=== PATIENT | female | born 1985 | race Caucasian/White ===

== ENCOUNTER → 2017-06-28 | Outpatient (CLI) | payer OTHER ==
--- NOTE | 2017-06-29 15:03 | RAD ---
EXAM: Frontal and lateral chest X-ray's obtained. CLINICAL INDICATION: APTYPICAL CHEST PAIN COMPARISON: Chest x-ray radiograph from 05/28/2012, but report unavailable at the time of dictation FINDINGS: There is no focal airspace consolidation, pleural effusion, or pneumothorax. The cardiomediastinal silhouette and pulmonary vasculature appear within normal limits. Visualized osseous structures appear intact and grossly unremarkable, given the nondedicated imaging. IMPRESSION: No radiographic evidence for acute cardiopulmonary disease process. Electronically signed by: Elmo Hawkins MD 06/29/2017 3:02 PM [employer] Workstation: [id number]
== END | disposition home or self-care (01) ==
LOC: RAD 11:07
PROVIDERS: ATTEND Nurse Practitioner Family
DX: R07.89 Other chest pain (principal)

== ENCOUNTER → 2017-06-28 | Outpatient (CLI) | payer SELFPAY | END | disposition home or self-care (01) | LOC: RAD 10:56 | PROVIDERS: ATTEND Nurse Practitioner Family | DX: R07.89 Other chest pain (principal) ==

== ENCOUNTER → 2017-06-28 | Outpatient (CLI) | payer SELFPAY | END | disposition home or self-care (01) | LOC: LAB.O 10:48 | PROVIDERS: ATTEND Nurse Practitioner Family | DX: R07.89 Other chest pain (principal) ==